=== PATIENT | male | born 1995 | race Caucasian/White ===

== ENCOUNTER 2017-05-12 05:46 | Day surgery (SDC) | payer BC ==
[~2017-05-12] VITALS: Ht 175.3 cm; Wt 93.2 kg
[2017-05-12] MEDS ORDERED: BUPIVACAINE/PF 0.5% ONE (06:12)
[2017-05-12] MEDS ORDERED: LACTATED RINGERS 1,000 ML IV SCH (06:14)
[2017-05-12 06:40] VITALS: BP 133/82
[2017-05-12] MEDS ORDERED: HYDR-3240 PO (06:40)
[2017-05-12] MEDS ORDERED: FENTANYL PF 100 MCG/2ML ONE ×2 (06:50→08:15)
[2017-05-12] MEDS ORDERED: MIDAZOLAM 1 MG/ML, 2ML ONE (06:50)
[2017-05-12] MEDS ORDERED: PROPOFOL 10 MG/ML, 20ML ONE (06:50)
[2017-05-12] MEDS ORDERED: LIDOCAINE-MPF 2% ,5ML ONE ×2 (06:51)
[2017-05-12] MEDS ORDERED: CEFAZOLIN 1,000 MG ONE ×2 (07:04)
[2017-05-12] MEDS ORDERED: DEXAMETHASONE 4 MG/ML, 1ML ONE ×2 (07:06)
[2017-05-12] MEDS ORDERED: HYDROmorphone 1 MG/ML, 1ML ONE (07:14)
[2017-05-12] MEDS ORDERED: OXYcodone 5 MG/5 ML ORAL.SOL UDC PO PRN (07:30)
[2017-05-12] MEDS ORDERED: MEPERIDINE/PF 25MG/0.5ML IVPush PRN (07:30)
[2017-05-12] MEDS ORDERED: HYDROmorphone 1 MG/ML, 1ML IV PRN (07:30)
[2017-05-12] MEDS ORDERED: LORazepam 2 MG/ML, 1ML IVPush PRN (07:30)
[2017-05-12] MEDS ORDERED: ONDANSETRON 2MG/ML, 2ML IVPush PRN (07:30)
[2017-05-12] MEDS ORDERED: PROMETHAZINE 25 MG/ML, 1ML IV PRN (07:30)
[2017-05-12] MEDS ORDERED: hydrALAzine 20 MG/ML, 1ML IV PRN (07:30)
[2017-05-12] MEDS ORDERED: LABETALOL 5MG/ML, 20ML IV PRN (07:30)
[2017-05-12] MEDS ORDERED: ACETAMINOPHEN 325 MG TABLET PO PRN (07:30)
[2017-05-12] MEDS ORDERED: KETOROLAC 30 MG/1 ML ONE (07:33)
[2017-05-12] MEDS ORDERED: ONDANSETRON 2MG/ML, 2ML ONE ×2 (07:33)
[2017-05-12] MEDS ORDERED: OXYcodone 5 MG/5 ML ORAL.SOL UDC ONE (08:15)
[2017-05-12] MEDS ORDERED: ACETAMINOPHEN 650 MG/20.3 ML UDC ONE (08:15)
[2017-05-12] MEDS: FENTANYL PF 100 MCG/2ML IV PRN ×2 (08:17→08:32)
[2017-05-12] MEDS ORDERED: DIPHENHYDRAMINE 50 MG/ML, 1ML ONE (08:36)
[2017-05-12] MEDS ORDERED: LABETALOL 5MG/ML, 20ML ONE (08:46)
[2017-05-12] MEDS ORDERED: DIPHENHYDRAMINE 50 MG/ML, 1ML IVPush PRN (09:00)
== END 2017-05-12 10:35 ==
LOC: OUT 05:46
PROVIDERS: ATTEND Orthopaedic Surgery
DX: S62.394A Other fracture of fourth metacarpal bone, right hand, initial encounter for closed fracture (principal); X58.XXXA Exposure to other specified factors, initial encounter; Y93.89 Activity, other specified; Y92.89 Other specified places as the place of occurrence of the external cause; Y99.8 Other external cause status
CPT/HCPCS: 26615; 73120; 76000; C1713; J0690; J1100; J1170; J1200; J1885; J2250; J2405; J2704; J3010; J3490; J7120